=== PATIENT | female | born 1990 | race American Indian/Alaskan Native ===

== ENCOUNTER 2023-06-15 08:00 | Outpatient (CLI) | payer OTHER ==
[2023-06-15 16:51] LABS: CREATININE,URINE 294.8 mg/dL; PROTEIN/CREATININE RATIO,URINE 0.1 (<=0.2)
== END 2023-06-15 23:59 | disposition home or self-care (01) ==
LOC: LAB.WC 08:00
PROVIDERS: ATTEND Obstetrics & Gynecology
DX: Z32.01 Encounter for pregnancy test, result positive (principal)
CPT/HCPCS: 82570; 84156

== ENCOUNTER 2023-06-30 13:52 | Outpatient (CLI) | payer OTHER ==
[2023-06-30 17:51] LABS: BASOPHILS # (AUTO) 0.1 10^3/uL (0.0-0.1); BASOPHILS % (AUTO) 0.8 %; EOSINOPHILS # (AUTO) 0.5 10^3/uL (0.0-0.7); EOSINOPHILS % (AUTO) 4.8 %; HCT - HEMATOCRIT 38.3 % (37.0-47.0); HGB - HEMOGLOBIN 12.9 g/dL (12.0-16.0); LYMPHOCYTES % (AUTO) 29.8 %; MEAN CORPUSCULAR HEMOGLOBIN 30.5 pg (27.0-31.0); MEAN CORPUSCULAR HGB CONC 33.7 g/dL (32.0-36.0); MEAN CORPUSCULAR VOLUME 90.5 fL (81.0-99.0); MEAN PLATELET VOLUME 9.2 fL (7.9-10.8); MONOCYTES # (AUTO) 0.6 10^3/uL (0.0-1.0); MONOCYTES % (AUTO) 5.7 %; NEUTROPHILS # (AUTO) 5.9 10^3/uL (1.5-6.6); NEUTROPHILS % (AUTO) 58.7 %; PLT - PLATELET COUNT 382 10^3/uL (130-450); RED BLOOD COUNT 4.23 10^6/uL (4.20-5.40); RED CELL DISTRIBUTION WIDTH 12.6 % (12.0-15.0); WHITE BLOOD COUNT 10.1 x10^3/uL (4.8-10.8)
[2023-06-30 18:25] LABS: BILIRUBIN,URINE NEGATIVE (NEGATIVE); GLUCOSE, URINE (UA) NEGATIVE (NEGATIVE); KETONES,URINE (UA) NEGATIVE (NEGATIVE); LEUKOCYTE ESTERASE, URINE NEGATIVE (NEGATIVE); NITRITE,URINE NEGATIVE (NEGATIVE); OCCULT BLOOD,URINE NEGATIVE (NEGATIVE); PROTEIN,URINE NEGATIVE (NEGATIVE); UROBILINOGEN,URINE 0.2 (NORMAL) E.U./dL (NORMAL)
[2023-06-30 18:43] LABS: CLARITY,URINE CLEAR (CLEAR); RBC,URINE None Seen /HPF (0-5); SQUAMOUS EPITHELIAL CELL,UR MANY Squamous (<= Few); WBC,URINE 0-3 /HPF (0-5)
[2023-06-30 18:44] LABS: BACTERIA,URINE Rare /HPF (None Seen)
[2023-06-30 18:52] LABS: THYROID STIMULATING HORMONE 1.05 uIU/mL (0.34-5.60)
[2023-06-30 20:35] LABS: ESTIMATED AVERAGE GLUCOSE 91 mg/dL (70-100); HEMOGLOBIN A1c% 4.8 % (4.27-6.07)
[2023-07-01 04:09] LABS: HBsAG SCREEN Negative (Negative); HCV AB Non Reactive (Non Reactive)
[2023-07-01 06:10] LABS: HIV SCREEN 4TH GENERATION Non Reactive (Non Reactive)
[2023-07-01 08:10] LABS: RPR Non Reactive (Non Reactive); VARICELLA-ZOSTER AB IGG 2361 index (Immune >165)
== END 2023-06-30 13:53 | disposition home or self-care (01) ==
LOC: LAB.N 13:52
PROVIDERS: ATTEND Obstetrics & Gynecology
DX: Z34.90 Encounter for supervision of normal pregnancy, unspecified, unspecified trimester (principal)
CPT/HCPCS: 36415; 81001; 83036; 84443; 85025; 86592; 86762; 86787; 86803; 86850; 86900; 86901; 87086; 87340; 87389

== ENCOUNTER 2023-07-13 15:51 | Outpatient (CLI) | payer OTHER ==
[2023-07-13 22:22] LABS: CHLAMYDIA TRACHOMATIS DNA NEGATIVE (NEGATIVE); NEISSERIA GONORRHOEAE DNA NEGATIVE (NEGATIVE); TRICHOMONAS VAGINALIS DNA NEGATIVE (NEGATIVE)
== END 2023-07-13 15:52 | disposition home or self-care (01) ==
LOC: LAB.WC 15:51
PROVIDERS: ATTEND Obstetrics & Gynecology
DX: Z11.3 Encounter for screening for infections with a predominantly sexual mode of transmission (principal)
CPT/HCPCS: 87491; 87591; 87661

== ENCOUNTER 2023-07-14 12:46 | Outpatient (CLI) | payer OTHER ==
--- NOTE | 2023-07-14 15:34 | Ultrasound Report ---
PROCEDURE: OB First Trimester INDICATIONS: POSITIVE TEST OUTSIDE/PRIOR DATING DATA: Last menstrual period (LMP): 04/25/2023. LMP-based estimated date of delivery (JUNE): 01/30/2024. First dating scan (date and location): 07/14/2023. Estimated date of delivery (JUNE) from first dating scan: 02/08/2024. TECHNIQUE: Real-time scanning was performed of the fetus and maternal pelvic organs, with image documentation. COMPARISON: None. FINDINGS: Intrauterine gestational sac present. Min gestational sac diameter of 3.8 cm. Embryo: [place]-rump length measures 3.25 cm, consistent with 10 weeks and 1 day. Heart rate: 166 bpm. Other: No perigestational fluid collection. Measurement variability in dating: +/- 4 weeks by LMP, +/- 7 days by mean sac diameter (use before 6 weeks gestation if crown-rump length not able to be measured), +/- 5 days by crown-rump length (6-12 weeks gestation). Maternal organs: Ovaries appear within normal limits. IMPRESSION: Single live intrauterine consistent with 10 weeks and 1 day. Reviewed by: Alex Archibald MD on 07/14/2023 3:33 PM PST Approved by: Alex Archibald MD on 07/14/2023 3:33 PM PST Station ID: [id number]
== END 2023-07-14 12:47 | disposition home or self-care (01) ==
LOC: DI 12:46
PROVIDERS: ATTEND Obstetrics & Gynecology
DX: Z34.91 Encounter for supervision of normal pregnancy, unspecified, first trimester (principal)

== ENCOUNTER 2023-10-25 09:57 | Outpatient (CLI) | payer OTHER ==
--- NOTE | 2023-10-25 14:32 | MRI Report ---
PROCEDURE: Brain WO INDICATIONS: TINNITUS TECHNIQUE: Noncontrast axial T1 spin echo, axial T2 fast spin echo, sagittal and axial FLAIR, coronal T2 fast sp in echo, axial gradient echo, axial diffusion and ADC through the brain. COMPARISON: None. FINDINGS: Image quality: Excellent. CSF Spaces: Basal cisterns are patent. No extra-axial fluid collections. Ventricles are normal in size and shape. Brain: No intracranial masses or hemorrhage. Thompson/white matter interface is normal. Brainstem appe ars normal. Diffusion-weighted images demonstrate no acute ischemic insult. No chronic ischemic ins ults. Normal intravascular flow voids are present. In this patient with this given history, scrutiny is given to the cerebellopontine angle cisterns and to the internal auditory canals. To the limits of this standard protocol study, no masses can be see n within these regions. Skull and face: Calvarium has normal marrow signal. Orbits appear normal. Sinuses: Sinuses and mastoids are clear. IMPRESSION: No imaging explanation is found for the patient's presenting symptoms. To the limits of this noncontrast study, no findings of masses or mass effect can be seen. Reviewed by: Alex Stahl MD on 10/25/2023 1:31 PM [facility] Approved by: Alex Stahl MD on 10/25/2023 1:31 PM [facility] Station ID: [id number]
== END 2023-10-25 09:58 | disposition home or self-care (01) ==
LOC: DI 09:57
DX: H93.11 Tinnitus, right ear (principal)

== ENCOUNTER 2023-10-27 18:52 | Outpatient (CLI) | payer OTHER ==
--- NOTE | 2023-10-28 10:14 | Ultrasound Report ---
PROCEDURE: OB Anatomy Scan INDICATIONS: SUPERVISION OF OUTSIDE/PRIOR DATING DATA: Last menstrual period (LMP): 04/17/2023. LMP-based estimated date of delivery (JUNE): 01/30/2024. First dating scan (date and location): 07/14/2023. Estimated date of delivery (JUNE) from first dating scan: 02/08/2024. The below data below was generated using the ultrasound JUNE of 02/08/2024 TECHNIQUE: Real-time scanning was performed of the fetus, with image documentation and biometric measurements. Endovaginal scanning: Not performed. COMPARISON: OB ultrasound 07/14/2023 FINDINGS: General: A single living intrauterine gestation is present. Presentation: Vertex Placenta: Placental position is posterior, without previa. Amniotic fluid index: 13.2 cm, within normal limits for gestational age. heart rate: 162 beats per minute. Maternal cervical canal: 4.3 cm long; normal length is 2.5 cm or more. biometrics: Biparietal diameter: 5.8 cm, 23 weeks 4 days, 4th percentile Head circumference: 22.4 cm, 24 weeks 3 days, 9th percentile Abdominal circumference: 21.5 cm, 26 weeks 0 days, 69th percentile Femur length: 4.3 cm, 24 weeks 2 days, 13th percentile Estimated gestational age from initial scan: 25 weeks 1 day Composite gestational age from present scan: 24 weeks 4 days Estimated weight and percentile: 768 g, 37th percentile Measurement variability in biometric dating: +/- 10 days from 12-20 weeks gestation, +/- 2 weeks from 20-30 weeks gestation, +/- 3 weeks at 30 weeks gestation or later. Anatomic survey: Neuro: Ventricles are normal at less than 10 mm. Cisterna magna is normal at 3-11 mm. Cerebellum i s normal in size and morphology. Nuchal skin fold: Subjectively normal for gestational age. Face: Nose and lips are normal. facial profile is not well evaluated. Spine: No evidence for spina bifida. Heart: 4-chambered heart is present, with normal ventricular outflow tracts. Diaphragm: Diaphragm is intact. Stomach: Left-sided stomach is present. Kidneys: Enlarged left renal pelvis is seen with AP diameter of 12 mm. No right pelviectasis. Normal is less than 5 mm in 2nd trimester, less than 7 mm in 3rd trimester. Cord: 3 vessel cord has orthotopic insertion. Bladder: Normal in size. Extremities: Lower extremities are poorly visualized. IMPRESSION: 1.Single live intrauterine . 2.Overall growth is within normal limits, although the biparietal diameter and head circumference are below the 10th percentile for gestational age. Recommend attention on follow-up. 3.Prominent left renal pelviectasis with AP diameter of 12 mm. No right pelviectasis. Recommend repea t evaluation in the 3rd trimester. 4. extremities and facial profile are not well seen and follow-up examination is recommended. Fe rea anatomic survey is otherwise within normal limits. Reviewed by: Alvaro Tipton MD on 10/28/2023 10:12 AM PST Approved by: Alvaro Tipton MD on 10/28/2023 10:12 AM [facility] Station ID: [id number]
== END 2023-10-27 18:53 | disposition home or self-care (01) ==
LOC: DI 18:52
PROVIDERS: ATTEND Obstetrics & Gynecology
DX: O99.891 Other specified diseases and conditions complicating pregnancy (principal); N28.89 Other specified disorders of kidney and ureter; Z3A.24 24 weeks gestation of pregnancy

== ENCOUNTER 2023-12-08 09:13 | Outpatient (CLI) | payer OTHER ==
[2023-12-08 10:24] LABS: HGB - HEMOGLOBIN 12.2 g/dL (12.0-16.0); MEAN CORPUSCULAR HEMOGLOBIN 30.9 pg (27.0-31.0); MEAN CORPUSCULAR HGB CONC 33.9 g/dL (32.0-36.0); MEAN CORPUSCULAR VOLUME 91.1 fL (81.0-99.0); MEAN PLATELET VOLUME 9.1 fL (7.9-10.8); RED BLOOD COUNT 3.95 10^6/uL (4.20-5.40); WHITE BLOOD COUNT 10.1 x10^3/uL (4.8-10.8)
== END 2023-12-08 09:14 | disposition home or self-care (01) ==
LOC: LAB 09:13
PROVIDERS: ATTEND Nurse Practitioner
DX: Z34.90 Encounter for supervision of normal pregnancy, unspecified, unspecified trimester (principal)
CPT/HCPCS: 36415; 82950; 85027

== ENCOUNTER 2023-12-14 07:42 | Outpatient (CLI) | payer OTHER ==
[2023-12-14 08:11] LABS: GTT GLUCOSE,FASTING 84 mg/dL (74-109)
== END 2023-12-14 07:43 | disposition home or self-care (01) ==
LOC: LAB 07:42
PROVIDERS: ATTEND Nurse Practitioner
DX: O99.810 Abnormal glucose complicating pregnancy (principal)
CPT/HCPCS: 36415; 82951; 82952

== ENCOUNTER 2023-12-21 08:00 | Outpatient (CLI) | payer OTHER ==
[2023-12-21 20:45] LABS: BACTERIAL VAGINOSIS DNA NEGATIVE (NEGATIVE); CANDIDA GLABRATA DNA NEGATIVE (NEGATIVE); CANDIDA GROUP DNA NEGATIVE (NEGATIVE); CANDIDA KRUSEI DNA NEGATIVE (NEGATIVE); TRICHOMONAS VAGINALIS DNA NEGATIVE (NEGATIVE)
== END 2023-12-21 23:59 | disposition home or self-care (01) ==
LOC: LAB.WC 08:00
PROVIDERS: ATTEND Obstetrics & Gynecology
DX: N89.8 Other specified noninflammatory disorders of vagina (principal)
CPT/HCPCS: 81514

== ENCOUNTER 2024-01-06 17:08 | Outpatient (CLI) | payer OTHER ==
[2024-01-06 21:48] LABS: ESTIMATED AVERAGE GLUCOSE 105 mg/dL (70-100); HEMOGLOBIN A1c% 5.3 % (4.27-6.07)
== END 2024-01-06 17:09 | disposition home or self-care (01) ==
LOC: LAB 17:08
PROVIDERS: ATTEND Nurse Practitioner
DX: L83 Acanthosis nigricans (principal)
CPT/HCPCS: 36415; 83036

== ENCOUNTER 2024-01-12 08:00 | Outpatient (CLI) | payer OTHER | END 2024-01-12 23:59 | disposition home or self-care (01) | LOC: LAB.WC 08:00 | PROVIDERS: ATTEND Obstetrics & Gynecology | DX: Z36.85 Encounter for antenatal screening for Streptococcus B (principal) | CPT/HCPCS: 87081; 87797 ==

== ENCOUNTER 2024-01-26 13:18 | Outpatient (CLI) | payer OTHER ==
[2024-01-26 13:45] VITALS: BP 117/76; O2SAT 97
--- NOTE | 2024-01-26 17:38 | PROCEDURE REPORT ---
- HPI Diagnosis/Indication for NST: Other (Possible deceleration on NST in the office (vs artifact with maternal movement)) Current EDU 02/08/24 Gestation 38 Weeks and 1 Days 2 Para 1 Vital Signs Temperature 98.8 F 01/26/24 13:40 Heart Rate 98 01/26/24 13:40 Respiratory Rate 18 01/26/24 13:40 Blood Pressure 117/76 01/26/24 13:40 O2 Saturation 97 01/26/24 13:40 Temperature 98.8 F 01/26/24 13:45 Heart Rate 98 01/26/24 13:40 Respiratory Rate 18 01/26/24 13:40 Blood Pressure 117/76 01/26/24 13:40 O2 Saturation 97 01/26/24 13:40 If not protocol: Oxygen Flow, liters/minute - NST Procedure NST Procedure Start Date 01/26/24 Start Time 13:36 Stop Time 14:43 Vibroacoustic Stimulation Used No Patient States Movement Yes - Results and Plan Findings/Impression: Reactive, Cat 1 Plan: Discharge home with follow up as scheduled.
== END 2024-01-26 14:50 | disposition home or self-care (01) ==
LOC: FBP 13:18 → WFO 13:18
PROVIDERS: ATTEND Obstetrics & Gynecology
DX: O36.8330 Maternal care for abnormalities of the fetal heart rate or rhythm, third trimester, not applicable or unspecified (principal); Z3A.38 38 weeks gestation of pregnancy
CPT/HCPCS: 59025; 99214

== ENCOUNTER 2024-02-02 05:30 | Inpatient (IN) | payer OTHER ==
--- NOTE | 2024-01-27 06:52 | PROCEDURE REPORT ---
- HPI Diagnosis/Indication for NST: Other (Obesity) - Results and Plan Plan: Patient is a 33-year-old -0-0-1 at 38 weeks 1 day gestation here for NST for prolonged monitoring after nondiagnostic NST in the clinic.. NST Performed 01/26/2024 NST Read 01/26/2024 FHT: 135 bpm baseline, moderate variability, accelerations present, no decelerations. Reactive NST Concow: Quiescent Diagnosis 38 weeks gestation Diabetes Continue with scheduled OB care
[2024-02-02] MEDS ORDERED: LACTATED RINGERS 1,000 ML IV SCH ×2 (06:00→10:00)
[2024-02-02] MEDS ORDERED: ONDANSETRON 4 MG/2 ML VIAL ONE (06:07)
[2024-02-02] MEDS ORDERED: PHENYLEPHRINE HCL 0.5 MG/5 ML AMPULE ONE (06:07)
[2024-02-02] MEDS ORDERED: fentaNYL 100 MCG/2 ML VIAL ONE ×2 (06:13→10:11)
[2024-02-02] MEDS ORDERED: MORPHINE PF 5 MG/10 ML VIAL ONE (06:13)
[2024-02-02 06:25] LABS: BASOPHILS # (AUTO) 0.1 10^3/uL (0.0-0.1); BASOPHILS % (AUTO) 0.5 %; EOSINOPHILS # (AUTO) 0.3 10^3/uL (0.0-0.7); EOSINOPHILS % (AUTO) 2.7 %; HCT - HEMATOCRIT 37.6 % (37.0-47.0); LYMPHOCYTES # (AUTO) 2.4 10^3/uL (1.5-3.5); LYMPHOCYTES % (AUTO) 25.1 %; MEAN CORPUSCULAR HGB CONC 34.6 g/dL (32.0-36.0); MEAN CORPUSCULAR VOLUME 89.5 fL (81.0-99.0); MEAN PLATELET VOLUME 9.5 fL (7.9-10.8); MONOCYTES # (AUTO) 0.6 10^3/uL (0.0-1.0); MONOCYTES % (AUTO) 5.9 %; NEUTROPHILS # (AUTO) 6.1 10^3/uL (1.5-6.6); NEUTROPHILS % (AUTO) 64.8 %; PLT - PLATELET COUNT 277 10^3/uL (130-450); RED CELL DISTRIBUTION WIDTH 13.4 % (12.0-15.0); WHITE BLOOD COUNT 9.5 x10^3/uL (4.8-10.8)
[2024-02-02 06:40] LABS: ALBUMIN 3.6 g/dL (3.2-5.5); ALBUMIN/GLOBULIN RATIO 1.2 (1.0-2.2); BILIRUBIN,TOTAL 0.3 mg/dL (0.2-1.0); CALCIUM 9.4 mg/dL (8.5-10.3); CREATININE 0.6 mg/dL (0.6-1.3); POTASSIUM 4.2 mmol/L (3.5-4.5); TOTAL PROTEIN 6.7 g/dL (6.4-8.9)
[2024-02-02] MEDS: CELECOXIB 100 MG CAPSULE PO ONE (06:54)
[2024-02-02] MEDS: GABAPENTIN 400 MG CAPSULE PO ONE (06:55)
[2024-02-02] MEDS: ACETAMINOPHEN 500 MG TABLET PO ONE (06:56)
[2024-02-02] MEDS ORDERED: ePHEDrine 50 MG/ML VIAL IVP ONE ×2 (07:10)
[2024-02-02] MEDS ORDERED: miSOPROStoL 200 MCG TABLET ONE (07:16)
[2024-02-02] MEDS ORDERED: METHYLERGONOVINE 0.2 MG/ML VIAL ONE (07:16)
[2024-02-02] MEDS ORDERED: CARBOPROST TROMETHAMINE 250 MCG/ML VIAL IM ONE (07:16)
[2024-02-02] MEDS: CITRIC ACID/SODIUM CITRATE 15 ML UDC PO ONE (07:26)
[2024-02-02] MEDS ORDERED: OXYTOCIN/SODIUM CHLORIDE 500 ML IV ONE (07:28)
--- NOTE | 2024-02-02 07:29 | HISTORY & PHYSICAL EXAMINATION ---
Admit History - Complications This : positive: Other (Obesity, previous section) Smoking Status: Former smoker - Mother's Labs GBS: positive: Group B Strep Positive Rubella Status: positive: Immune - Other Maternal History Other Maternal History: HPI: Patient is a 33-year-old -0-0-1 at 39 weeks 1 day gestation presenting for repeat section. She has good movement. Denies loss of fluid. No NIEVES/BV or RUQP. No vaginal bleeding. Denies nausea and vomiting. Denies urinary urgency or dysuria. All other symptoms reviewed and were negative except per HPI. Course LMP 04/25/2023 JUNE by LMP 01/30/2024 US 07/14/2023 @ 10+1 NOT c/w LMP (02/08/2024) FINAL JUNE: 02/08/2024 FOB Roberto [place] - home with their daughter. Yolanda - [place] - [employer]. prior c section. Moderate left hydronephrosis. seen at [facility]. Plan: referral to [facility] for follow up ultrasound, MFM and pediatric nephrology. -F/U MFM 01/01 Obesity: Weekly NSTs ordered Pre- Weight:181.8 BMI: 35.63 Blood type: O+ Antibody: negative CBC: PLT 382 HCT 38.2 HGB 12.9 RUB: immune VZV: immune HBsAg: negative HepC: N-R RPR/AB-EIA: N-R HIV: N-R PAP: @NAVY 2021 per patient GC/CT:07/13/23 Negative HSV:denies in self and partner Genetic testing: declines, declines again after gentic counseling at . Covid: vaccinated in past, declines current vaccine. Flu: 06/2023 FAS: ordered 08/24/2023 scheduled for week fo 23 October Placenta:posterior w/o previa Cord:3VC NERY:132. EFW:768g 37%ile biparietal diameter and head circumference below 10%ile prominent left renal pelviectasis AP: diameter 12mm extremities and profile not well seen MFM referral at , has appointment 11/15. growth normal there. 50gm OGCT: 141 3HR GTT: 84 / 141 / 120 / 89 TDAP:11/13 Breast Pump:11/13 3rd trimester H/H PLT GBS: Positive Delivery plan: Repeat c/s. Likely / Contraception: Does not want more children, but does not want tubal or control. Uses NFP. PMH Obesity PSH Previous low-transverse section Left foot repair OB History -0-0-1 1. 04/11/2022, 40 weeks, section, female, 6 pounds 8 ounces, nonre assuring heart rate tracing SH Denies tobacco, alcohol, drugs Family History Father: Hypertension, kidney disease Maternal grandmother: Kidney disease, brain cancer Paternal grandmother: Breast cancer Allergies Cinnamon Medications Famotidine 20 mg twice a day vitamins Physical exam: General: Alert, oriented, no acute distress Head: Normal cephalic atraumatic Eyes: PERRLA, extraocular motions intact. Respiratory: Normal rate of respiration. No accessory muscle use, normal respiratory effort. Cardiovascular: Regular rate and rhythm Abdomen: Gravid, nontender, nondistended Extremities: Normal range of motion Neuro: Oriented x3. Normal movements Psych: Appropriate mood and affect. Normal judgment and insight FHT: 135 beats per baseline, moderate variability, accelerations present, no decelerations. Rubicon: Rare Plan 33-year-old -0-0-1 at 39 weeks 1 day gestation here for repeat low- transverse section 1. Low-transverse section - section was recommended. Risks, benefits and alternatives were discussed including but not limited to infection, bleeding that may require blood products or hysterectomy for life saving measures, injury to surrounding organs including but not limited to bowel, bladder, ureters, tubes and ovaries and/or the baby. Should injury occur it could require longer/additional surgery to repair. The patient stated understanding and desired to proceed. All questions were answered posed by patient. 2. Previous low-transverse section x 1 3. Obesity - HPI Current EDU 02/08/24 Gestation 39 Weeks and 1 Days 2 Para 1 Vital Signs Temperature 98.8 F 02/02/24 06:26 Heart Rate 86 02/02/24 06:26 Respiratory Rate 18 02/02/24 06:26 Blood Pressure 128/78 02/02/24 06:26 O2 Saturation 98 02/02/24 06:26 Temperature 98.8 F 02/02/24 06:32 Heart Rate 86 02/02/24 06:32 Respiratory Rate 18 02/02/24 06:32 Blood Pressure 123/78 02/02/24 06:32 O2 Saturation 98 02/02/24 06:26 If not protocol: Oxygen Flow, liters/minute - NST Procedure NST Procedure Start Date 02/02/24 Start Time 06:01 Stop Time 06:26 Vibroacoustic Stimulation Used No Patient States Movement Yes Meds/Allgy - Home Medications Home Medications: Ambulatory Orders Medication Instructions Recorded Confirmed Docusate Sodium [Dulcolax Stool 01/26/24 Softener] Famotidine [Acid Independent Sales Representative] 20 mg PO 01/26/24 Ferrous Sulfate [Feosol] 325 mg PO DAILY 01/26/24 01/26/24 Pnv No.95/Ferrous Fum/Folic AC 1 each PO 01/26/24 [ Tablet] - Allergies Allergies/Adverse Reactions: Allergies Allergy/AdvReac Type Severity Reaction Status Date / Time cinnamon Allergy Hives Verified 01/26/24 14:13 Physical - Abdominal Exam Vital Signs: Temp Pulse Resp BP Pulse Ox O2 Flow Rate 98.8 F 86 18 123/78 98 02/02/24 06:32 02/02/24 06:32 02/02/24 06:32 02/02/24 06:32 02/02/24 06:26 Plan for Labor - Plan For Labor I expect patient to be DC'd or transferred within 96 hours.: Yes
--- NOTE | 2024-02-02 07:55 | ANESTHESIA ---
Pre-Anesthesia VS, & Labs Height: 5 ft Weight (kg): 95.254 kg Body Mass Index: 41.0 BMI Classification: Morbidly Obese - NPO >8 hours - Is Patient ?: Yes - Lab Results Fish Bones: 02/02/24 06:05 02/02/24 06:05 <Devang Alcala - Last Filed: 02/02/24 07:55> - NPO >8 hours - Is Patient ?: Yes - Lab Results Fish Bones: 02/02/24 06:05 02/02/24 06:05 <Barbie Rodriguez - Last Filed: 02/02/24 09:56> - Diagnosis repeat C/S (Devang Alcala) - Procedure C/S (Devang Alcala) Vital Signs: Temp Pulse Resp BP Pulse Ox O2 Flow Rate 36.7 C 96 20 144/69 H 100 02/02/24 09:39 02/02/24 09:51 02/02/24 09:51 02/02/24 09:51 02/02/24 09:51 - Lab Results Current Lab Results: Laboratory Tests 02/02/24 06:11: POC Whole Bld Glucose 96 02/02/24 06:05: Sodium 135, Potassium 4.2, Chloride 108, Carbon Dioxide 20 L, Anion Gap 7.0, BUN 12, Creatinine 0.6, Estimated GFR (MDRD) 117, Glucose 91, Calcium 9.4, Total Bilirubin 0.3, AST 16, ALT 9 L, Alkaline Phosphatase 190 H, Total Protein 6.7, Albumin 3.6, Globulin 3.1, Albumin/Globulin Ratio 1.2 02/02/24 06:05: Blood Type O POSITIVE, Antibody Screen NEGATIVE 02/02/24 06:05: WBC 9.5, RBC 4.20, Hgb 13.0, Hct 37.6, MCV 89.5, MCH 31.0, MCHC 34.6, RDW 13.4, Plt Count 277, MPV 9.5, Neut # (Auto) 6.1, Lymph # (Auto) 2.4, [place] # (Auto) 0.6, Eos # (Auto) 0.3, Baso # (Auto) 0.1, Absolute Nucleated RBC 0.00, Nucleated RBC % 0.0 Home Medications and Allergies <Devang Alcala - Last Filed: 02/02/24 07:55> <Barbie Rodriguez - Last Filed: 02/02/24 09:56> Active Medications Acetaminophen (Acetaminophen 500 Mg Tablet) 1,000 mg PO Q8H [facility] Docusate Sodium (Docusate Sodium 100 Mg Capsule) 100 mg PO BID JOHANA Lactated Ringer's (Lr) 1,000 mls @ 100 mls/hr IV .Q10H JOHANA Oxytocin/Sodium Chloride (Pitocin/Sodium Chloride) 500 mls @ 999 mls/hr IV PRN PRN; Protocol PRN Reason: POST- HEMORR PREVENTION Ibuprofen (Ibuprofen 600 Mg Tablet) 600 mg PO Q6H JOHANA Ketorolac Tromethamine (Ketorolac 30 Mg/Ml Vial) 30 mg IVP Q6H JOHANA Stop: 02/03/24 09:01 Ondansetron HCl (Ondansetron Odt 4 Mg Tablet) 4 mg TL Q4H PRN PRN Reason: Nausea / Vomiting Ondansetron HCl (Ondansetron Odt 4 Mg Tablet) 4 mg TL Q6HR PRN PRN Reason: Nausea / Vomiting Oxycodone HCl (Oxycodone 5 Mg Tablet) 5 mg PO Q4HR PRN PRN Reason: PAIN Simethicone (Simethicone Chew 80 Mg Tablet) 80 mg PO TID PRN PRN Reason: Gas Sodium Chloride (Sodium Chloride Flush 0.9% 10 Ml Syringe) 10 ml IVP 0100,0900,1700 JOHANA Sodium Chloride (Sodium Chloride Flush 0.9% 10 Ml Syringe) 10 ml IVP PRN PRN PRN Reason: NEEDED PER PROVIDER ORDERS Docusate Sodium [Dulcolax Stool Softener] 01/26/24 Famotidine [Acid Set Up Technician] 20 mg PO 01/26/24 Ferrous Sulfate [Feosol] 325 mg PO DAILY 01/26/24 Pnv No.95/Ferrous Fum/Folic AC [ Tablet] 1 each PO 01/26/24 Allergies/Adverse Reactions: Allergies Allergy/AdvReac Type Severity Reaction Status Date / Time cinnamon Allergy Hives Verified 01/26/24 14:13 Anes History & Medical History - Medical History Smoking Status: Former smoker - Obstetrical History Complications: reports: Other (Obesity, previous section) <Devang Alcala - Last Filed: 02/02/24 07:55> - Anesthetic History Anesthesia Complications: reports: No previous complications Family history of Anesthesia Complications: Denies Family history of Malignant Hyperthermia: Denies - Medical History Cardiovascular: reports: None Pulmonary: reports: None Gastrointestinal: reports: GERD Urinary: reports: None Musculoskeletal: reports: None Endocrine/Autoimmune: reports: None Blood Disorders: reports: None Skin: reports: None Smoking Status: Former smoker Psychosocial: reports: No issues indicated History of Cancer?: No - Surgical History Gynecologic: reports: section <Barbie Rodriguez - Last Filed: 02/02/24 09:56> Exam General: Alert, Oriented x3, Cooperative Dental: WNL Mouth Openin Fingerbreadth Neck Mobility: Normal Mallampati classification: II Thyromental Distance: 4-6 cm Respiratory: Lungs clear Cardiovascular: Regular rate <Barbie Rodriguez - Last Filed: 02/02/24 09:56> Plan Anesthesia Type: Spinal, Transverse Abdominis Plane (TAP) Block Regional Block: Per Surgeon's request for Post Op pain control Consent for Procedure(s) Verified and Reviewed: Yes Code Status: Attempt Resuscitation ASA classification: 2-Mild systemic disease Is this case an emergency?: No <Barbie Rodriguez - Last Filed: 02/02/24 09:56>
[2024-02-02] MEDS ORDERED: ACETAMINOPHEN 1,000 MG/100 ML 1,000 MG/100 ML BAG IV ONE (08:55)
[2024-02-02] MEDS ORDERED: KETOROLAC 30 MG/ML VIAL ONE (08:55)
[2024-02-02] MEDS ORDERED: OXYTOCIN/SODIUM CHLORIDE 500 ML IV PRN (09:21)
[2024-02-02] MEDS ORDERED: SODIUM CHLORIDE FLUSH 0.9% 10 ML SYRINGE IVP PRN (09:21)
[2024-02-02] MEDS ORDERED: ONDANSETRON ODT 4 MG TABLET TL PRN ×2 (09:21)
--- NOTE | 2024-02-02 09:29 | OPERATIVE REPORT ---
Operative Report - General Admit Date: 02/02/24 Procedure Date: 02/02/24 Planned Procedure: Repeat low transverse section Pre-Op Diagnosis: Previous low transverse section Procedure Performed: Repeat low transverse section Post Op Diagnosis: Status post repeat low transverse section - Procedure Note Primary Surgeon: Jorden Fortune MD Secondary Surgeon: Shweta Cuenca MD Anesthesia Provider: Barbie Rodriguez CRNA Anesthesia Technique: Spinal Pathology: None Findings: Normal appearing uterus, tubes, and ovaries. Thin lower uterine segment. - Other Other Information/Narrative: section was recommended. Risks, benefits and alternatives were discussed including but not limited to infection, bleeding that may require blood products or hysterectomy for life saving measures, injury to surrounding organs including but not limited to bowel, bladder, ureters, tubes and ovaries and/or the baby. Should injury occur it could require longer/additional surgery to repair. The patient stated understanding and desired to proceed. All questions were answered posed by patient. Prior to being taken to the OR, 2 grams of cefazolin IV was administered. The patient was taken to the operating room where regional anesthesia was found to be adequate. She was then prepared and draped in the usual sterile fashion in the dorsal supine position with a leftward tilt displacing the uterus. Meraz was draining to gravity. SCDs were on bilateral lower extremities. Time out was taken. A pfannenstiel skin incision was then made with the scalpel and carried through to the underlying layer of fascia. The fascia was incised in the midline and the incision extended laterally with the Pro scissors. The superior aspect of the facial incision was then grasped with the Samuel clamps, elevated and the underlying rectus muscles dissected off sharply. Attention was then turned to the inferior aspect of this incision which in a similar fashion was grasped, elevated with the Samuel clamps and the rectus muscle dissected off sharply. The rectus muscles were in the midline. The peritoneum identified, grasped with the pick-ups and entered sharply with the Metzenbaum scissors. The peritoneal incision was then extended superiorly and inferiorly with good visualization of the bladder. The bladder blade was inserted. The vesicouterine peritoneum was identified, grasped with the pick-ups, and entered sharply with Metzenbaum scissors. This incision was then extended laterally and the bladder flap created digitally. The bladder blade was reinserted. The lower uterine segment was identified and incised in a transverse fashion with the scalpel. The uterine incision was then extended bluntly laterally. Artificial rupture of membranes demonstrated clear fluid. The bladder blade was removed. The fetus was in a cephalic presentation. The infants head delivered atraumatically. The anterior shoulders were delivered followed by the posterior shoulders then the remainder of the body. The infants mouth and nose were bulb suctioned. The umbilical cord was clamped times two and cut. The infant was handed to the pediatric team. The placenta was removed with gentle traction. Oxytocin was added to the IV fluid and was allowed to run freely. The uterus was exteriorized and cleared of all clots and debris. The uterine incision was inspected and found to be without any extensions and was repaired with 0 Vicryl in a running, locked fashion. A second imbricating layer was performed. Upon inspection, the repaired hysterotomy was found to be hemostatic. The uterus was firm and returned to the abdomen. The gutters were cleared of all clots and debris. The muscle layer was examined and found to be hemostatic. The fascia was reapproximated with 0 Vicryl in a running fashion. The subcutaneous tissue was closed with 2-0 Vicryl. The skin was closed in a subcuticular fashion with 4-0 Monocryl. The patient tolerated the procedure well. Sponge, lap and needle counts were correct times three. The patient was taken to the recovery room in stable condition. I appreciate the assistance of Dr. Cuenca during this procedure, and the assistance in retraction, visualization, dissection, and overall assistance during the case were instrumental to the patient's wellbeing. Please see surgery record for urine output and IV fluids.
[2024-02-02] MEDS: LACTATED RINGERS 1,000 ML IV ONE (09:39)
[2024-02-02] MEDS ORDERED: HYDROmorphone 0.5 MG/0.5 ML SYRINGE IVP PRN (09:56)
[2024-02-02] MEDS ORDERED: fentaNYL 100 MCG/2 ML VIAL IVP PRN (09:56)
[2024-02-02] MEDS ORDERED: ONDANSETRON 4 MG/2 ML VIAL IVP PRN (09:56)
[2024-02-02] MEDS ORDERED: METOCLOPRAMIDE 10 MG/2 ML VIAL IVP PRN (09:56)
[2024-02-02] MEDS ORDERED: ATROPINE ABBOJECT 1 MG/10 ML SYRINGE IVP PRN (09:56)
[2024-02-02] MEDS ORDERED: ePHEDrine 50 MG/ML VIAL IVP PRN (09:56)
[2024-02-02] MEDS ORDERED: MORPHINE 2 MG/ML CARPUJECT IVP PRN (09:56)
[2024-02-02] MEDS ORDERED: NALOXONE 0.4 MG/ML VIAL IVP PRN (09:56)
[2024-02-02] MEDS ORDERED: ACETAMINOPHEN 500 MG TABLET PO SCH (10:00)
[2024-02-02] MEDS ORDERED: MIDAZOLAM 2 MG/2 ML VIAL ONE (10:11)
[2024-02-02] MEDS ORDERED: LIDOCAINE-MPF 2% 5 ML VIAL ONE (10:13)
[2024-02-02] MEDS: LACTATED RINGERS 1,000 ML IV SCH (10:45)
--- NOTE | 2024-02-02 11:08 | PHARMACY PROGRESS NOTE ---
- Best Possible Medication History Admit Date and Time: 02/02/24 0530 Processed by: Pharmacy As the person ultimately responsible for medication therapy, providers are able to order a medication from an existing home medication list in [facility] via the "Reconcile Routine" prior to Confirmation of that medication by business support assistant. Such practice is discouraged except when the physician, in their clinical judgment, deems that a medical need exists for a medication without regard to previous use.
[2024-02-02] MEDS: KETOROLAC 30 MG/ML VIAL IVP SCH (14:54)
--- NOTE | 2024-02-02 15:39 | ANESTHESIA POST OP EVALUATION ---
Anesthesia Post Eval - Post Anesthesia Eval Vitals: Last Vital Signs Temp 36.7 C 02/02/24 11:02 Pulse 72 02/02/24 11:02 Resp 16 02/02/24 11:02 BP 126/76 02/02/24 11:02 Pulse Ox 97 02/02/24 11:02 O2 Flow Rate CV Function Including HR & BP: Stable Pain Control: Satisfactory Nausea & Vomiting: Negative Mental Status: Baseline Respiratory Status: Airway Patent Hydration Status: Satisfactory Anesthesia Complications: None
[2024-02-02] MEDS ORDERED: SODIUM CHLORIDE FLUSH 0.9% 10 ML SYRINGE IVP SCH (17:00)
[2024-02-02] MEDS: ACETAMINOPHEN 500 MG TABLET PO SCH (17:01)
[2024-02-02] MEDS: oxyCODONE 5 MG TABLET PO PRN (17:03)
[2024-02-02] MEDS: DOCUSATE SODIUM 100 MG CAPSULE PO SCH (20:48)
[2024-02-02] MEDS: CALCIUM CARBONATE CHEW 500 MG TABLET PO SCH (23:00)
[2024-02-03 06:19] LABS: BASOPHILS # (AUTO) 0.1 10^3/uL (0.0-0.1); BASOPHILS % (AUTO) 0.4 %; EOSINOPHILS % (AUTO) 0.2 %; HCT - HEMATOCRIT 33.6 % (37.0-47.0); LYMPHOCYTES # (AUTO) 3.2 10^3/uL (1.5-3.5); LYMPHOCYTES % (AUTO) 24.1 %; MEAN CORPUSCULAR HGB CONC 32.7 g/dL (32.0-36.0); MEAN CORPUSCULAR VOLUME 91.6 fL (81.0-99.0); MEAN PLATELET VOLUME 9.2 fL (7.9-10.8); MONOCYTES # (AUTO) 0.7 10^3/uL (0.0-1.0); NEUTROPHILS # (AUTO) 9.1 10^3/uL (1.5-6.6); NEUTROPHILS % (AUTO) 69.5 %; PLT - PLATELET COUNT 228 10^3/uL (130-450); RED BLOOD COUNT 3.67 10^6/uL (4.20-5.40); RED CELL DISTRIBUTION WIDTH 13.5 % (12.0-15.0); WHITE BLOOD COUNT 13.1 x10^3/uL (4.8-10.8)
[2024-02-03] MEDS: SIMETHICONE CHEW 80 MG TABLET PO PRN (07:37)
[2024-02-03] MEDS: IBUPROFEN 600 MG TABLET PO SCH (09:01)
--- NOTE | 2024-02-03 09:22 | PROVIDER PROGRESS NOTE ---
Subjective - Prog Note Date Prog Note Date: 02/03/24 Prog Note Time: 09:00 - Subjective Pt reports feeling: Improved Subjective: Comfortable. Appropriate lochia. Ambulating. Voiding. Tolerating regular diet. . Mood is good. Objective - Vital Signs/Intake & Output Reviewed Vital Signs: Yes Vital Signs: Vital Signs x48h Temp Pulse Resp BP Pulse Ox 02/03/24 08:10 98.1 F 103 H 18 132/70 H 99 02/03/24 04:00 98.4 F 67 18 117/70 Intake & Output: Intake & Output 01/31/24 02/01/24 02/02/24 02/03/24 23:59 23:59 23:59 23:59 Intake Total 1600 Output Total 2900 Balance -1300 - Objective General Appearance: positive: No acute distress Respiratory: positive: No respiratory distress Abdomen: positive: Other (Dressing removed. Incision c/d/i with steri strips) Skin: positive: Color nml Extremities: positive: Non-tender - Lab Results Fish Bones: 02/03/24 06:15 02/02/24 06:05 Other Labs: Lab Results x24hrs 02/03/24 Range/Units 06:15 WBC 13.1 H (4.8-10.8) x10^3/uL RBC 3.67 L (4.20-5.40) 10^6/uL Hgb 11.0 L (12.0-16.0) g/dL Hct 33.6 L (37.0-47.0) % MCV 91.6 (81.0-99.0) fL MCH 30.0 (27.0-31.0) pg MCHC 32.7 (32.0-36.0) g/dL RDW 13.5 (12.0-15.0) % Plt Count 228 (130-450) 10^3/uL MPV 9.2 (7.9-10.8) fL Neut # (Auto) 9.1 H (1.5-6.6) 10^3/uL Lymph # (Auto) 3.2 (1.5-3.5) 10^3/uL [place] # (Auto) 0.7 (0.0-1.0) 10^3/uL Eos # (Auto) 0.0 (0.0-0.7) 10^3/uL Baso # (Auto) 0.1 (0.0-0.1) 10^3/uL Absolute Nucleated RBC 0.00 x10^3/uL Nucleated RBC % 0.0 /100WBC Assessment/Plan - Problem List (1) care following delivery Impression: 33yo s/p RCD 02/01/24 at 39.1, POD#1 doing well - Routine , postoperative care - Anticipate discharge tomorrow
[2024-02-03] MEDS: ceFAZolin (2G) 2 GM in SODIUM CHLORIDE 0.9% MINIBAG 100 ML IV ONE (11:12)
--- NOTE | 2024-02-03 22:10 | PROVIDER PROGRESS NOTE ---
Subjective - Prog Note Date Prog Note Date: 02/03/24 Prog Note Time: 22:07 - Subjective Pt reports feeling: Improved Objective - Vital Signs/Intake & Output Reviewed Vital Signs: Yes Vital Signs: Vital Signs x48h Temp Pulse Resp BP Pulse Ox 02/03/24 17:12 37.0 C 87 20 93/58 L 100 Intake & Output: Intake & Output 01/31/24 02/01/24 02/02/24 02/03/24 23:59 23:59 23:59 23:59 Intake Total 1600 Output Total 2900 Balance -1300 - Objective General Appearance: positive: No acute distress Eyes Bilateral: positive: Normal inspection Neck: positive: Nml inspection Cardiovascular: positive: Regular rate & rhythm Abdomen: positive: Nml bowel sounds Skin: positive: Color nml Extremities: positive: Non-tender, Full ROM Neurologic/Psychiatric: positive: Oriented x3 - Lab Results Fish Bones: 02/03/24 06:15 02/02/24 06:05 Other Labs: Lab Results x24hrs 02/03/24 Range/Units 06:15 WBC 13.1 H (4.8-10.8) x10^3/uL RBC 3.67 L (4.20-5.40) 10^6/uL Hgb 11.0 L (12.0-16.0) g/dL Hct 33.6 L (37.0-47.0) % MCV 91.6 (81.0-99.0) fL MCH 30.0 (27.0-31.0) pg MCHC 32.7 (32.0-36.0) g/dL RDW 13.5 (12.0-15.0) % Plt Count 228 (130-450) 10^3/uL MPV 9.2 (7.9-10.8) fL Neut # (Auto) 9.1 H (1.5-6.6) 10^3/uL Lymph # (Auto) 3.2 (1.5-3.5) 10^3/uL [place] # (Auto) 0.7 (0.0-1.0) 10^3/uL Eos # (Auto) 0.0 (0.0-0.7) 10^3/uL Baso # (Auto) 0.1 (0.0-0.1) 10^3/uL Absolute Nucleated RBC 0.00 x10^3/uL Nucleated RBC % 0.0 /100WBC ABX Reporting Has patient been on IV antibiotics over the past 48 hours?: Yes Assessment/Plan - Problem List (1) care following delivery Impression: Subjective: Patient reports she is doing well. Comfortable WITH pain management Lochia appropriate. Denies heavy bleeding. Ambulating. Pelvic and abdominal pain well-controlled. Tolerating oral intake. Diet: Regular. Voiding without difficulty. Passing flatus. Denies BM. Patient is bonding with baby in room. BABY under phototherapy but rooming in with parents Denies feeling lightheaded, dizzy Objective General: Alert, oriented, no apparent distress. Cardiovascular: Regular rate. Regular rhythm. Lungs: No increased work of breathing. Abdomen: Uterus firm. Below umbilicus. No guarding or rebound. Low transverse abdominal incision not well assessed. Extremities: No pain on palpation. Distal pulses intact. Assessment and Plan 33yo s/p RCD //24 at 39.1, POD#1 doing well - Routine , postoperative care - Anticipate discharge tomorrow
[2024-02-04] MEDS: CALCIUM CARBONATE CHEW 500 MG TABLET PO PRN (08:44)
--- NOTE | 2024-02-04 08:58 | PROVIDER PROGRESS NOTE ---
Subjective - Subjective Subjective: Subjective Patient reports she is doing well. Lochia appropriate. Denies heavy bleeding. Ambulating. Pelvic and abdominal pain well-controlled. Tolerating oral intake. Diet: Regular. Voiding without difficulty. Passing flatus. Denies BM. Patient is bonding with baby in room, but under bili lights. Breast feeding going well. Denies feeling lightheaded, dizzy or excessively fatigued. Control: Natural family planning Objective General: Alert, oriented, no apparent distress. Cardiovascular: Regular rate. Regular rhythm. Lungs: No increased work of breathing. Abdomen: Uterus firm. Below umbilicus. No guarding or rebound. Extremities: No pain on palpation. No cords palpated. Distal pulses intact. Incision: Clean, dry, and intact. Assessment and Plan day 2. -Routine care -Anticipate discharge tomorrow Status post repeat low-transverse section -Routine postoperative care Objective - Vital Signs/Intake & Output Vital Signs: Vital Signs x48h Temp Pulse Resp BP 02/04/24 04:18 97.7 F 84 19 128/67 Intake & Output: Intake & Output 02/01/24 02/02/24 02/03/24 02/04/24 23:59 23:59 23:59 23:59 Intake Total 1600 Output Total 2900 Balance -1300 - Lab Results Fish Bones: 02/03/24 06:15 02/02/24 06:05
--- NOTE | 2024-02-05 10:35 | Discharge Plan ---
Discharge Plan Problem Reviewed?: Yes Disposition: Home, Self Care Condition: Good Diet: Regular Activity Restrictions: Activity as Tolerated Shower Restrictions: No Driving Restrictions: Yes (No driving with pain meds) Weight Bearing: Full Weight Instruction Topics: , Depression , No Smoking: If you smoke, Please STOP! Call for help. Follow-up with: Jorden Fortune MD [Provider Admit Priv/Credential] -
--- NOTE | 2024-02-05 10:37 | DISCHARGE SUMMARY ---
Discharge Summary Admit Date: 02/02/24 Discharge Date: 02/05/24 Discharging Provider: Agueda Oakley DO Condition at Discharge: Good Discharge Disposition: 01 Home, Self Care Discharge Facility Name: [facility] - DIAGNOSES Admission Diagnoses: Prior CD Desires repeat CD - HPI History of Present Illness: 33yo admitted on 02/02/24 for scheduled RCD. - HOSPITAL COURSE Hospital Course: 33yo admitted on 02/02/24 for scheduled RCD. See operative report for uncomplicated RCD 02/02/24. Recovering well. Appropriate lochia. Ambulating. Voiding. Tolerating regular diet. well. Mood is good. She is ready to go home POD#3. and postoperative care reviewed, all questions answered. - ALLERGIES Allergies/Adverse Reactions: Allergies Allergy/AdvReac Type Severity Reaction Status Date / Time cinnamon Allergy Hives Verified 01/26/24 14:13 - MEDICATIONS Home Medications: Ambulatory Orders Medication Instructions Recorded Confirmed Famotidine [Acid Infection Control Nurse] 20 mg PO BID 01/26/24 02/02/24 Pnv No.95/Ferrous Fum/Folic AC 1 each PO DAILY 01/26/24 02/02/24 [ Tablet] - PHYSICAL EXAM AT DISCHARGE General Appearance: positive: No acute distress Eyes Bilateral: positive: EOMI Respiratory: positive: No respiratory distress Abdomen: positive: Other (Incision c/d/i) Skin: positive: Color nml Neurologic/Psychiatric: positive: Oriented x3 - LABS Result Diagrams: 02/03/24 06:15 02/02/24 06:05 - FOLLOW UP Follow Up: 02/09/24 1500 - TIME SPENT Time Spent in Discharge (Minutes): 25
[2024-02-05 16:43] VITALS: BP 128/90; O2SAT 99
--- NOTE | 2024-02-05 18:02 | Labor Flowsheet ---
Labor Flowsheet Datetime Report Generated by CPN: 02/05/2024 18:02 Datetime: 02/02/2024 12:43 VAGINAL EXAM Membranes Ruptured Date/Time: 02/02/2024 08:35 Membranes Rupture Method: Artificial Amniotic Fluid Color: Clear Amniotic Fluid Amount: Moderate Amniotic Fluid Odor: Normal
== END 2024-02-05 18:00 | disposition home or self-care (01) | DRG 788 ==
LOC: FBP 05:30
PROVIDERS: ADMIT Obstetrics & Gynecology; ATTEND Obstetrics & Gynecology
PROC: 10D00Z1 Extraction of Products of Conception, Low, Open Approach (ICD-10-PCS; principal; 2024-02-02 07:30)
DX: O34.211 Maternal care for low transverse scar from previous cesarean delivery (principal); Z3A.39 39 weeks gestation of pregnancy; Z37.0 Single live birth; O99.214 Obesity complicating childbirth; O99.824 Streptococcus B carrier state complicating childbirth; Z91.85 Personal history of military service
CPT/HCPCS: 36415; 80053; 85025; 86850; 86900; 86901; A9270; J0131; J2372; J7120